=== PATIENT | male | born 1975 | race African-American/Black ===

== ENCOUNTER 2016-09-23 18:35 | Emergency (ER) | payer MEDICARE, MEDICAID ==
[~2016-09-23] VITALS: Ht 177.8 cm; Wt 88.0 kg
[~2016-09-23 18:35] MED LIST: BP MED; ELIP667T; LOTE40TA; NEPHRO; NIFE10; TOPR25TA2; [UNRECOGNIZED DRUG - OTHER]; [UNRECOGNIZED DRUG - OTHER]
[2016-09-23 18:37] VITALS: BP 180/100; PULSE 116; RESP 20; TEMP 102.1; O2SAT 96
[2016-09-23] MEDS ORDERED: CINA30 PO (20:12)
[2016-09-23] MEDS ORDERED: CARV25TA PO (20:12)
[2016-09-23] MEDS ORDERED: AMLO10TA2 PO (20:12)
[2016-09-23] MEDS ORDERED: CALC667C (20:12)
[2016-09-23] MEDS ORDERED: CLINDAMYCIN PHOS 900 MG/6 ML VIAL IM ONE (20:30)
[2016-09-23] MEDS ORDERED: ACETAMINOPHEN/HYDROcodone 325 MG/5 MG TAB PO ONE (20:30)
--- NOTE | 2016-09-23 20:33 | PD ---
HPI Chief Complaint: Oral / Dental Pain or Problem Time Seen by Provider: 20:22 Travel History International Travel<30 days: No Contact w/Intl Traveler<30days: No Traveled to known affect area: No History of Present Illness HPI 41-year-old male arrives in about 2 days of left face pain. Onset gradual. He feels a throbbing sensation of moderate severity which is constant. There is some radiation towards the left rastafari. His had no double vision or pain with range of motion of the eyes. In triage for fever was recorded however he denies subjective fever prior. He reports a history of dental abscess w similar presentation years ago. Patient states he has end-stage renal disease and attends dialysis Tuesday and intends to attend dialysis tomorrow, Tuesday, as per normal. 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 PFSH Past Medical History Arthritis: No Asthma: No Blood Disorders: No Heart Rhythm Problems: No Cancer: No High Cholesterol: No Chemotherapy: No Chest Pain: No Congestive Heart Failure: No COPD: No Diminished Hearing: No Endocrine: No Glaucoma: No Genitourinary: No Hypertension: Yes Immune Disorder: No Kidney Stones: No Musculoskeletal: No Neurologic: No Psychiatric: No Reproductive: No Respiratory: No Migraines: No Myocardial Infarction: No Radiation Therapy: No Renal Failure: Yes Seizures: No Sickle Cell Disease: No Sleep Apnea: No Tetanus Vaccination: < 5 Years Past Surgical History Abdominal Surgery: Yes (FISTULA IN LT ARM.) AICD: No Arteriovenous Shunt: No Cardiac Surgery: No Ear Surgery: No Endocrine Surgery: No Eye Surgery: No Gynecologic Surgery: No Insulin Pump: No Joint Replacement: No Oral Surgery: No Pacemaker: No Thoracic Surgery: No Social History Alcohol Use: Yes (RARELY ) Tobacco Use: No Substance Use: No Allergies-Medications (Allergen,Severity, Reaction): Coded Allergies: No Known Allergies (Verified , 01/09/16) Reported Meds & Prescriptions Reported Meds & Active Scripts Active Lortab (Hydrocodone-Acetaminophen) 5-325 Mg Tab 1-2 Tab PO Q6H PRN Clindamycin (Clindamycin HCl) 150 Mg Cap 450 Mg PO Q8HR 10 Days Reported Carvedilol 25 Mg Tab 25 Mg PO BID Sensipar (Cinacalcet) 30 Mg Tab 30 Mg PO DAILY Amlodipine (Amlodipine Besylate) 10 Mg Tab 10 Mg PO DAILY Calcium Acetate (Calcium Acetate (Phosphate Bin) 667 Mg Cap Phoslo (Calcium Acetate) 667 Mg Cap Toprol Xl (Metoprolol Succinate) 25 Mg Tabcr Nephro-Deon Rx (Vitamin B Complex/Vit C/Folic Acid) 1 Cap Tab Lotensin 40 mg (Benazepril HCl) 40 Mg Tab [Hydrolizine] Procardia (Nifedipine) 10 Mg Cap [Pectoral] [Bp Med] Review of Systems Except as stated in HPI: all other systems reviewed are Neg General / Constitutional: Positive: Fever Genitourinary: Positive: Other Physical Exam Narrative GENERAL: 41 yo M, WNWD, NAD SKIN: Warm and dry. HEAD: Atraumatic. Normocephalic. EYES: Pupils equal and round. No scleral icterus. No injection or drainage. ENT: No nasal bleeding or discharge. Mucous membranes pink and moist. L maxillary face swelling with TTP. No proptosis. Dentition in poor repair with multiple upper and lower molar/premolar extraction. NECK: Trachea midline. No JVD. CARDIOVASCULAR: Regular rate and rhythm. RESPIRATORY: No accessory muscle use. Clear to auscultation. Breath sounds equal bilaterally. GASTROINTESTINAL: Abdomen soft, non-tender, nondistended. Hepatic and splenic margins not palpable. MUSCULOSKELETAL: Extremities without clubbing, cyanosis, or edema. No obvious deformities. NEUROLOGICAL: Awake and alert. No obvious cranial nerve deficits. Motor grossly within normal limits. Five out of 5 muscle strength in the arms and legs. Normal speech. PSYCHIATRIC: Appropriate mood and affect; insight and judgment normal. Data Data Last Documented VS Vital Signs Date Time Temp Pulse Resp B/P Pulse Ox O2 Delivery O2 Flow Rate FiO2 09/23/16 18:37 102.1 116 20 180/100 96 Room Air VS reviewed Orders Acetamin-Hydrocod 325-5 Mg (Nichols 5-325 (09/23/16 20:30) Clindamycin Inj (Cleocin Inj) (09/23/16 20:30) MDM Medical Decision Making Medical Screen Exam Complete: Yes Emergency Medical Condition: Yes Medical Record Reviewed: Yes Differential Diagnosis sepsis, facial abscess, facial cellulitis, post-septal cellulitis, Narrative Course Patient has a fever. Presumably this is due to the left face cellulitis. 900 milligrams IM clindamycin here with 450 mg 3 times a day 10 days. Strict return precautions discussed. Patient verbalized understanding and is quite agreeable with the plan that includes discharge home tonight. Diagnosis Primary Impression: Left facial swelling Additional Impression: Cellulitis Qualified Code: L03.211 - Cellulitis of face Additional Instructions: You have a choice when it comes to health care, and we are glad that you chose [facility]. Hopefully, we have met your expectations on today's visit. You are welcome to return to [facility] at any time, as we are committed to meeting the health care needs of our community. PLEASE RETURN TO THE ER RIGHT AWAY IF SWELLING WORSENS OR IF FEVER PERSISTS INTO TOMORROW. PLEASE RETURN TO THE ER RIGHT AWAY IF YOU DEVELOP ANY VISUAL CHANGE OR PAIN IN EITHER EYE. Med/Other Pt SpecificInfo: Prescription(s) given Scripts Hydrocodone-Acetaminophen (Lortab)5-325 Mg Tab1-2 Tab PO Q6H PRN (PAIN SCALE 6 TO 10) #12 TAB Ref 0 Prov:Aleksandar Portillo MD 09/23/16 Clindamycin 150 Mg [id number] Mg PO Q8HR 10 Days Ref 0 Prov:Aleksandar Portillo MD 09/23/16 Disposition: 01 DISCHARGE HOME Condition: Stable Aleksandar Portillo MD Sep 23, 2016 20:33
[2016-09-23] MEDS ORDERED: HYDR-3533 PO (21:05)
[2016-09-23] MEDS ORDERED: CLIN1CAP5 PO (21:05)
== END 2016-09-23 21:34 | disposition home or self-care (01) ==
LOC: NEPC 18:35
DX: L03.211 Cellulitis of face (principal)
CPT/HCPCS: 96372